=== PATIENT | female | born 1990 | race African-American/Black ===

== ENCOUNTER 2019-08-22 23:04 | Emergency (ER) | payer MEDICAID ==
[~2019-08-22] VITALS: Ht 154.9 cm; Wt 59.0 kg
[2019-08-22 23:15] VITALS: BP 123/84
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
[2019-08-22] MEDS ORDERED: HYDROCODON-ACE1 EA15 ORAL (23:25)
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
[2019-08-23] VITALS: BP 119/85
--- NOTE | 2019-08-23 | NUR ---
ER DISCHARGE NOTE: Patient is cleared to be discharged per ERMD, pt is aox4, on room air, with stable vital signs. pt was given dc and prescription instructions, pt was able to verbalize understanding, pt id band removed. pt is able to ambulate with steady gait. pt took all belongings.
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
== END 2019-08-23 | disposition home or self-care (01) ==
LOC: EMR 23:30
DX: S09.90XA Unspecified injury of head, initial encounter (principal); V43.52XA Car driver injured in collision with other type car in traffic accident, initial encounter; Y92.410 Unspecified street and highway as the place of occurrence of the external cause
CPT/HCPCS: 70450; Z7502; 99284